=== PATIENT | female | born 1985 | race Caucasian/White ===

== ENCOUNTER 2019-11-03 12:43 | Emergency (ER) | payer OTHER ==
[~2019-11-03] VITALS: Ht 160 cm; Wt 91.6 kg
[2019-11-03] MEDS ORDERED: IV NS 0.9% 1,000 ML IV ONE (13:00)
[2019-11-03] MEDS ORDERED: LEVETIRACETAM (500MG) 500 MG in IV NS 0.9% 100 ML IV SCH (13:00)
--- NOTE | 2019-11-03 13:00 | NUR ---
claudy, from [facility], had seizure episode lasted for 3 seconds no trauma/injury, BS 116. On room air, breathing evenly and unlabored, connected to the monitor and pulse ox. kept comfortable, will conitnue to monitor accordingly.
[2019-11-03 14:41] VITALS: BP 135/80
--- NOTE | 2019-11-03 14:41 | NUR ---
Patient discharged to home in stable condition. Written and verbal after care instructions given. Patient verbalizes understanding of instruction.IV removed. Catheter intact and site benign. Pressure and 4x4 applied to site. No bleeding noted.
== END 2019-11-03 14:41 | disposition home or self-care (01) ==
LOC: ER 12:43
DX: G40.909 Epilepsy, unspecified, not intractable, without status epilepticus (principal)
CPT/HCPCS: 96365; 99284; J1953; J7030 ×2

== ENCOUNTER 2019-11-21 13:11 | Emergency (ER) | payer OTHER, MEDICAID ==
[~2019-11-21] VITALS: Ht 160 cm; Wt 91.2 kg
--- NOTE | 2019-11-21 13:11 | NUR ---
PT BIBRA FROM POST OFFICE C/O WITNESSED SEIZURE EPISODE. PT IS AAOX3, NOT IN RESPIRATORY DISTRESS, HOOKED TO CLINICAL TRIALS SYSTEMS ADMINISTRATOR, KEPT RESTED AND COMFORTABLE. WILL CONTINUE TO MONITOR.
--- NOTE | 2019-11-21 13:20 | NUR ---
PT SEEN EXAMINED BY .
--- NOTE | 2019-11-21 13:25 | NUR ---
IV LINE ESTABLISHED BLOOD DRAWN AND SENT TO LAB.
[2019-11-21] MEDS ORDERED: LEVETIRACETAM (500MG) 1,000 MG in IV NS 0.9% 100 ML IV ONE (13:30)
[2019-11-21] MEDS ORDERED: LEVETIRACETAM (500MG) 1,000 MG in IV NS 0.9% 100 ML IV SCH (13:30)
[2019-11-21 14:16] VITALS: BP 120/74
--- NOTE | 2019-11-21 14:16 | NUR ---
IV removed. Catheter intact and site benign. Pressure and 4x4 applied to site. No bleeding noted. Patient discharged to home in stable condition. Written and verbal after care instructions given. Patient verbalizes understanding of instruction.
== END 2019-11-21 14:22 | disposition home or self-care (01) ==
LOC: ER 13:12
DX: G40.909 Epilepsy, unspecified, not intractable, without status epilepticus (principal)
CPT/HCPCS: 96365; 99284; J1953; J7030